=== PATIENT | male | born 1975 | race Caucasian/White ===

== ENCOUNTER 2017-10-19 15:13 | Emergency (ER) | payer OTHER, SELFPAY ==
[2017-10-19 15:14] VITALS: BP 132/91; PULSE 112; RESP 14; TEMP 37.4; O2SAT 94; BMI 47.2
--- NOTE | 2017-10-19 15:29 | EKG12_ITS ---
Test Reason : NUMBNESS Blood Pressure : / mmHG Vent. Rate : 100 BPM Atrial Rate : 100 BPM P-R Int : 146 ms QRS Dur : 108 ms QT Int : 352 ms P-R-T Axes : 034 -23 030 degrees QTc Int : 454 ms Normal sinus rhythm Normal ECG Confirmed by LUIS ENRIQUE DEE MD ([id number]), editor book JOCELYNE KIMBROUGH ([id number]) on 10/21/2017 3:35:17 PM Referred By: YAMILE Confirmed By:LUIS ENRIQUE DEE MD
--- NOTE | 2017-10-19 15:30 | RAD_ITS ---
STUDY: X-RAY CHEST REASON FOR EXAM: Male, 42 years old. Cough and right-sided facial pain. TECHNIQUE: Single AP portable view of the chest. COMPARISON: None. FINDINGS: The lungs are clear and expanded. There is no demonstrated pleural abnormality. There is mild cardiac enlargement. Normal mediastinum and steph. Normal visualized pulmonary arteries. Normal visualized aortic arch and descending thoracic aorta. Normal visualized thoracic spine. Normal visualized ribs, clavicles, and shoulders. There is no demonstrated abnormality of the visualized soft tissue structures of the upper abdomen. RAD/Chest 1 View IMPRESSION: Cardiomegaly. Electronically Signed: Jame Whitley MD at 15:45 EDT Tel [phone], Service support ,
--- NOTE | 2017-10-19 15:30 | VDLE_ITS ---
Reason For Study: SWELLING RIGHT LEFT GSV is normal. GSV is normal. CFV is compressible, spontaneous, phasic, CFV is compressible, spontaneous, phasic, competent and demonstrates normal competent, and demonstrates normal augmentation. augmentation. FV is compressible, spontaneous, phasic, FV is compressible, spontaneous, phasic, competent and demonstrates normal competent and demonstrates normal augmentation. augmentation. POP V is compressible, spontaneous, phasic, POP V is compressible, spontaneous, phasic, competent and demonstrates normal competent and demonstrates normal augmentation. augmentation. T/P Trunk is compressible. T/P Trunk is compressible. PTV is compressible. PTV is compressible. RT PerV is compressible. LT PerV is compressible. Procedure Exam performed portable in ED. The exam was diagnostic. A preliminary report was called and/or faxed to ED. Interpretation Summary Deep veins of the lower extremities are bilaterally patent and compressible segmentally. There is no evidence of deep vein thrombosis on either side. Valvular competence appears intact within the proximal deep venous systems bilaterally. The greater saphenous veins appear bilaterally patent and compressible segmentally. Ordering Physician: Lupe Allison Referring Physician: Colin Ferrell Performed By: Cornelia Ponce, DENITA, RVT
--- NOTE | 2017-10-19 15:31 | ED.VISSUMM ---
- ER Visit Summary Date of Service: 10/19/17 Chief Complaint: [Right-sided facial numbness] History of Present Illness: The patient is a 42 M [who presents the emergency department with numbness to the right side of his face. It started 5 days ago as numbness on the right side of his lips. It is slowly spread across his face to his forehead cheek and chin as well as the right side of his tongue. No difficulty with speaking or swallowing no change in symmetry of the face no dizziness. He has had swelling of his bilateral lower extremities. He states today his fourth and fifth toes are numb. He has chronic shortness of breath but is not changed. No chest pain. No weakness or balance disturbances. He is otherwise healthy he occasionally drinks alcohol he does not smoke takes no medications. He did take aspirin at the advice of his doctor about an hour ago. He has a family history of early congestive heart failure and his father at 37 and his sister has similar illness. He recently drove to [place] and back symptoms started before he left but have progressively worsened while he was gone] Physical Examination: [] Temperature 99.3 heart rate 112 other vitals within normal limits overweight Male in no acute distress PERRL EOMI MMM NECK supple and nontender, no masses RRR no murmur rub or gallop, no peripheral edema, symmetric radial pulses CTAB no respiratory distress ABDOMEN is soft and nontender, normal bowel sounds, no distension, no rebound or guarding SKIN is warm and dry no rashes Alert and Oriented x3, CN II-XII in tact, no motor deficits, decreased sensation on right face and right 4th and 5th toes, gait normal, NIH 1 No lymphadenopathy Test Results: [] Emergency Department Course and Treatment: [I spoke with neurology regarding the patient. They were back recommended MRI. MRI of the brain and neck with and without contrast were obtained and really show no acute process. Patient has strong peripheral pulses. Ultrasound of the lower extremities was negative. Cardiac workup was unremarkable. I am unsure what the cause of the numbness in this patient's face is. I do not think he requires admission at this time however I will refer him to ENT and touch base with his primary doctor. This is been going on for over a week. He did have a mild temperature but no evidence of infection.] Treatment Plan: [] Disposition: [Discharge] Impression: [right facial numbness] This note was generated with [employer] dictation software. It may contain incorrect words, spelling, and punctuation that were not noted in review of the chart prior to signing ED Disposition - Plan for ED Patient: Chief Complaint: Numb/Ting Referrals: Colin Ferrell DO [Primary Care Provider] -
[2017-10-19 15:45] VITALS: BP 149/90; PULSE 103; RESP 18; O2SAT 93
--- NOTE | 2017-10-19 15:48 | MRI_ITS ---
STUDY: MRI CERVICAL SPINE WITH AND WITHOUT CONTRAST REASON FOR EXAM: Male, 42 years old. Facial numbness TECHNIQUE: Standardized fat and water weighted pulse sequences were obtained in the sagittal and axial following I.V. administration of 15 ml of Gadavist contrast material. COMPARISON: None FINDINGS: Normal foramen magnum and brainstem-cervical cord junction. Normal craniovertebral junction. Normal anterior atlantoaxial articulation. Normal odontoid process. Decreased cervical lordosis. Normal vertebral bodies and posterior osseous elements. C2-3: Normal endplates. Normal disc height, signal and morphology. Normal central canal and intervertebral neural foramina. C3-4: Normal endplates. Normal disc height, signal and morphology. Normal central canal and intervertebral neural foramina. C4-5: Normal endplates. Normal disc height, signal and morphology. Normal central canal and intervertebral neural foramina. C5-6: Normal endplates. Normal disc height, signal and tiny left paracentral disc protrusion.. Normal central canal and intervertebral neural foramina. C6-7: Normal endplates. Normal disc height, signal and tiny central disc protrusion. Normal central canal and intervertebral neural foramina. C7-T1: Normal endplates. Normal disc height, signal and morphology. Normal central canal and intervertebral neural foramina. Normal cervical cord. Normal visualized soft tissue structures. MRI/Spine Cervical W/WO Contrast IMPRESSION: Tiny central disc protrusion at C6-7 and tiny left paracentral disc protrusion at C5-6 without significant spinal stenosis or cord compression.. No enhancing lesions following contrast administration Electronically Signed: Jaden Rey MD at 19:47 EDT , Service support ,
--- NOTE | 2017-10-19 15:48 | MRI_ITS ---
STUDY: MRI BRAIN WITH AND WITHOUT CONTRAST REASON FOR EXAM: Male, 42 years old. Right facial numbness TECHNIQUE: Standardized multiplanar fat and water weighted pulse sequences were obtained. 15 ml of Gadavist contrast material was administered intravenously for the contrast portion of the examination. COMPARISON: None. FINDINGS: Normal size of the ventricles and extra-axial spaces for the patient's age. Normal white matter tracts of the supratentorial brain. Normal bilateral basal ganglia. Normal thalami. There is no extra-axial fluid accumulation. Normal flow voids within the major intracranial circulation suggesting patency by spin echo criteria. Normal venous enhancement. There is no enhancing intra-axial or extra-axial abnormality. Normal sella turcica, pituitary gland, infundibular stalk, optic chiasm and hypothalamus. Normal tectal plate and pineal gland. Normal midbrain, suraj and medulla. Normal cerebellum. Normal basal cisterns. Normal bilateral temporal bones. Normal bilateral internal auditory canals. No demonstrated orbital abnormality, within the constraints of a routine brain study. There is minor mucosal thickening of the ethmoid air cells. Normal calvarium and skull base. Normal visualized soft tissue structures. Normal visualized upper cervical spine. MRI/Brain W/WO Contrast IMPRESSION: Normal unenhanced and enhanced MRI of the brain. Mild bilateral ethmoid sinus disease Electronically Signed: Jaden Rey MD at 19:37 EDT , Service support ,
[2017-10-19 16:16] LABS: Absolute Lymphocyte Count 2.19 X10^3/ul (0.83-4.51); Basophil# 0.03 X10^3/uL; Basophil% 0.3 % (0-1); Eosinophil# 0.09 X10^3/uL; Hematocrit 45.8 % (40-54); Hemoglobin 15.2 g/dl (13.0-16.5); Lymphocyte # 2.19 X10^3/ul (4.0); Lymphocyte % 24.4 % (19-41); Mean Corp Hgb Conc 33.2 g/gl (32-36); Mean Corpuscular Volume 90.3 fL (80-94); Mean Platelet Vol. 9.9 fl (6.2-12.0); Monocyte# 0.69 X10^3/uL; Monocyte% 7.7 % (0-10); Neutrophil # 5.97 X10^3/uL (2.7-7.7); Neutrophil % 66.4 % (47-70); Platelet Count 267 K/mm3 (150-450); RBC Distribution Width CV 13.6 % (11.6-14.6); RBC Distribution Width SD 44.2 fl (35.1-43.9); Red Blood Count 5.07 M/mm3 (4.6-6.2)
[2017-10-19 16:18] LABS: POSITIVE COUNT NO; POSITIVE DIFFERENTIAL NO; POSITIVE MORPHOLOGY NO
[2017-10-19 16:19] VITALS: BP 132/85; PULSE 102; RESP 17; O2SAT 92
[2017-10-19 16:30] LABS: Anion Gap 7 (5-15); BUN 13 mg/dL (7-18); BUN/Creat Ratio 13.3 RATIO (10-20); Calcium,Total 9.2 mg/dL (8.5-10.1); Chloride 106 mmol/L (98-107); Creatinine, Serum 0.98 mg/dL (0.70-1.30); EST Glomerular Filtration Rate 90 mL/min (>60); Est Glom Filt Rate - Afr Amer 108 mL/min (>60); Estimated Creatinine Clearance 118.56 ml/min; Glucose 93 mg/dL (74-106); Potassium 3.5 mmol/L (3.5-5.1); Sodium Level 139 mmol/L (136-145)
[2017-10-19 16:41] LABS: Partial Thromboplast Time 31.3 Seconds (24.1-36.2); Prothrombin Time (Protime)PT. 13.6 SECONDS (11.7-14.9)
[2017-10-19 19:00] VITALS: BP 143/96; PULSE 88; RESP 16; O2SAT 97
--- NOTE | 2017-10-19 20:30 | ED.DEP ---
ED Disposition - Plan for ED Patient: Chief Complaint: Numb/Ting Referrals: Colin Ferrell DO [Primary Care Provider] - 2 Days Ta Palm MD [STAFF PHYSICIAN] - 3-5 Days
--- NOTE | 2017-10-19 20:31 | ED.DEP ---
ED Disposition - Plan for ED Patient: Chief Complaint: Numb/Ting Instructions: ED Neuropathy Peripheral Referrals: Ta Palm MD [STAFF PHYSICIAN] - 3-5 Days Colin Ferrell DO [Primary Care Provider] - 2 Days
[2017-10-19 20:53] VITALS: BP 144/82; PULSE 87; RESP 16; O2SAT 97
== END 2017-10-19 20:55 | disposition home or self-care (01) ==
LOC: ED 15:46
PROVIDERS: Emergency Provider Emergency Medicine; Family Provider Family Medicine; PCP Family Medicine
DX: R20.0 Anesthesia of skin (principal); R06.02 Shortness of breath
CPT/HCPCS: 70553; 71045; 72156; 80048; 83880; 84484; 85025; 85610; 85730; 93005; 93970; 99284; A9585; A4216

== ENCOUNTER → 2018-01-05 10:35 | Outpatient (CLI) | payer OTHER, SELFPAY | PROVIDERS: Family Provider Family Medicine; PCP Family Medicine; Visit Provider Chiropractor | DX: M54.16 Radiculopathy, lumbar region (principal) | CPT/HCPCS: 72110 ==

== ENCOUNTER → 2018-03-02 06:51 | Outpatient (CLI) | payer OTHER, SELFPAY ==
--- NOTE | 2018-03-02 06:57 | MRI_ITS ---
STUDY: MRI LUMBAR SPINE WITHOUT CONTRAST REASON FOR EXAM: Male, 42 years old. back pain, left leg pain. TECHNIQUE: Standardized fat and water weighted pulse sequences were obtained in the sagittal and axial planes. # of Images: 139 COMPARISON: None FINDINGS: T12-L1: There is mild disc space narrowing and endplate spondylosis. There is no significant disc herniation, central canal or foraminal stenosis. Normal lumbar lordosis. There is no substantial scoliosis. Normal conus medullaris that terminates at the L1 L1-2: There is minimal disc space narrowing and endplate spondylosis. There is no significant disc herniation, central canal or foraminal stenosis. L2-3: There is minimal disc space narrowing and endplate spondylosis. There is no significant disc herniation, central canal or foraminal stenosis. L3-4: Normal endplates. Normal disc height, hydration and morphology. Normal bilateral facet joints. Normal central canal and bilateral lateral recesses. Normal bilateral intervertebral neural foramina. L4-5: There is mild disc space narrowing and endplates spondylosis. There is mild disc disc osteophyte complex with small central protrusion without significant central canal stenosis. There is minimal bilateral foraminal stenosis. L5-S1: There is minimal disc space narrowing and endplate spondylosis. There is a mild disc bulge with posterior annular fissure without significant central canal or foraminal stenosis. Normal visualized sacral ala. Normal visualized paraspinous soft tissue structures. MRI/Spine Lumbar (Routine) IMPRESSION: Mild degenerative changes. Electronically Signed: Skylar Smith MD at 8:09 EDT Tel , Service support ,
== END ==
PROVIDERS: Family Provider Family Medicine; PCP Family Medicine; Referring Provider Chiropractor; Visit Provider Chiropractor
DX: M51.36 Other intervertebral disc degeneration, lumbar region (principal); M51.26 Other intervertebral disc displacement, lumbar region
CPT/HCPCS: 72148

== ENCOUNTER 2018-07-24 23:12 | Emergency (ER) | payer OTHER, SELFPAY ==
[2018-07-24 23:12] VITALS: BP 111/68; PULSE 109; RESP 16; TEMP 36.2; O2SAT 92; BMI 45.8
--- NOTE | 2018-07-24 23:47 | RAD_ITS ---
HISTORY: IInjury COMPARISON: X-ray report but not images 01/14/2010 which describes an acute right fifth metacarpal fracture. FINDINGS: XR right hand 3 views Old, healed fracture of the right fifth metacarpal transfixed with a metallic plate and 4 fully threaded surgical screws. No loosening of the surgical hardware is seen. 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 Residual mild angular deformity of the fifth metacarpal. 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 Chronic appearing mild shortening of the fourth metacarpal. RAD/Hand Min 3 Views IMPRESSION: 1. No recent fracture or acute osseous abnormality. 2. Right fifth metacarpal healed fracture and additional chronic changes, as above. at 0053 Reported and signed by: Adrián Caraballo MD Electronically Signed: Adrián Caraballo, at 0:52 EDT Tel , Service support ,
--- NOTE | 2018-07-25 01:20 | ED.VISSUMM ---
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 Patient lacerated his right arm. Patient is dominant. Patient is up-to-date on tetanus. He denies any other injuries.] Physical Examination: [Right arm-patient has laceration measuring 1.5 cm over the dorsal aspect of the mid forearm as well as a 2.5 cm laceration over the dorsal aspect of the right hand over the area of the distal third metacarpal. He has normal range of motion of all digits. He has normal sensation. Patient has normal strength. No foreign bodies noted within the wounds.] Test Results: [X-rays of the right hand obtained showed no fractures or foreign bodies.] Emergency Department Course and Treatment: [Laceration repair-wound sterilely draped and prepped. Wound anesthetized with 1% lidocaine total of 6 cc. The forearm laceration measured 1.6 cm and was irrigated with saline and cleansed with Shur-Clens. Using 5-0 nylon a total of 2 single interrupted sutures placed with good wound edge approximation. The laceration of the right hand measured 2.5 cm and again was cleansed with Shur-Clens and irrigated with copious saline. Using 5-0 nylon a total of 3 single interrupted sutures placed with good wound edge approximation. Patient tolerated procedure well.] Both wounds were inspected visually and no foreign bodies noted within the wounds. Treatment Plan: [Patient have sutures removed in 10 days. Patient to return if increasing pain, redness, purulent drainage, or condition should worsen anyway.] Disposition: [Discharged home in stable condition] Impression: [Laceration right forearm and right hand total length 4 cm-simple repair] This note was generated with [employer] dictation software. It may contain incorrect words, spelling, and punctuation that were not noted in review of the chart prior to signing ED Disposition - Plan for ED Patient: Referrals: Colin Ferrell DO [Primary Care Provider] -
--- NOTE | 2018-07-25 01:23 | ED.DEP ---
ED Disposition - Plan for ED Patient: Instructions: ED Laceration Hand Referrals: Colin Ferrell DO [Primary Care Provider] - 10 Day for suture removal
[2018-07-25 01:41] VITALS: RESP 16
== END 2018-07-25 01:41 | disposition home or self-care (01) ==
LOC: ED 07-25 00:34
PROVIDERS: Emergency Provider Emergency Medicine; Family Provider Family Medicine; PCP Family Medicine
DX: S51.811A Laceration without foreign body of right forearm, initial encounter (principal); S61.411A Laceration without foreign body of right hand, initial encounter; W18.02XA Striking against glass with subsequent fall, initial encounter; Y93.9 Activity, unspecified; Y92.838 Other recreation area as the place of occurrence of the external cause; Y99.9 Unspecified external cause status
CPT/HCPCS: 12002; 73130; 99283

== ENCOUNTER 2018-12-16 16:26 | Emergency (ER) | payer OTHER, SELFPAY ==
[2018-12-16 16:27] VITALS: BP 132/86; PULSE 76; PULSE 82; RESP 17; RESP 24; TEMP 36.5; O2SAT 95; BMI 46.0
--- NOTE | 2018-12-16 16:46 | RAD_ITS ---
STUDY: X-RAY CHEST REASON FOR EXAM: Male, 43 years old. Chest pain TECHNIQUE: PA and lateral views of the chest COMPARISON: X-Ray Chest October 19, 2017 FINDINGS: The lungs are clear. There are no pleural effusions. There is no pneumothorax. The heart is normal in size. The visualized osseous structures are within normal limits. RAD/Chest PA and Lateral IMPRESSION: No acute thoracic pathology. Electronically Signed: Jaden Paris, at 17:58 EDT Tel , Service support ,
--- NOTE | 2018-12-16 16:46 | EKG12_ITS ---
Test Reason : Blood Pressure : / mmHG Vent. Rate : 076 BPM Atrial Rate : 076 BPM P-R Int : 158 ms QRS Dur : 110 ms QT Int : 406 ms P-R-T Axes : 030 -21 029 degrees QTc Int : 456 ms Normal sinus rhythm Normal ECG Confirmed by ARNALDO JETT, ANGIE ([id number]), writer editor YOUNG BURRELL ([id number]) on 12/20/2018 1:20:44 PM Referred By: KEVIN/ODETTE Confirmed By:ARIAN MCINTOSH MD
[2018-12-16] MEDS: Aspirin 81 MG TAB.CHEW 324 MG PO (16:54)
[2018-12-16 16:56] VITALS: O2SAT 92
[2018-12-16 16:57] LABS: Absolute Lymphocyte Count 3.03 X10^3/uL (0.83-4.51); Absolute Neutrophil Count 4.3 X10^3/uL (2.0-7.7); Basophil# 0.06 X10^3/uL; Basophil% 0.7 % (0-1); Eosinophil# 0.26 X10^3/uL; Eosinophils% 2.9 % (0-5); Hemoglobin 16.3 g/dL (13.0-16.5); Lymphocyte # 3.03 X10^3/ul (4.0); Lymphocyte % 33.9 % (19-41); Mean Corp Hgb Conc 32.6 g/dL (32-36); Mean Corpuscular Hgb 29.7 pg (27.0-32.0); Mean Corpuscular Volume 91.1 fL (80-94); Mean Platelet Vol. 9.5 fl (6.2-12.0); Monocyte# 1.27 X10^3/uL; Monocyte% 14.2 % (0-10); NRBC Flagged by Analyzer 0 % (0-5); Neutrophil # 4.27 X10^3/uL (2.7-7.7); Neutrophil % 47.9 % (47-70); Platelet Count 296 K/mm3 (150-450); RBC Distribution Width CV 12.9 % (11.6-14.6); RBC Distribution Width SD 43.1 fl (35.1-43.9); Red Blood Count 5.49 M/mm3 (4.6-6.2); White Blood Count 8.9 K/mm3 (4.4-11.0)
[2018-12-16 17:14] VITALS: O2SAT 86; O2SAT 93
[2018-12-16 17:20] LABS: Anion Gap 8 (5-15); BUN 15 mg/dL (7-18); BUN/Creat Ratio 14.9 RATIO (10-20); Calcium,Total 8.9 mg/dL (8.5-10.1); Chloride 106 mmol/L (98-107); Creatinine, Serum 1.01 mg/dL (0.70-1.30); EST Glomerular Filtration Rate 86 mL/min (>60); Est Glom Filt Rate - Afr Amer 104 mL/min (>60); Estimated Creatinine Clearance 113.88 ml/min; Glucose 80 mg/dL (74-106); Potassium 3.3 mmol/L (3.5-5.1); Sodium Level 140 mmol/L (136-145); Thyroid Stim Hormone (TSH) 4.01 uIU/mL (0.358-3.74)
--- NOTE | 2018-12-16 18:23 | ED.DCSUM_ITS ---
History of Present Illness Chief Complaint: Chest Other Informant: EMS Narrative: Patient presenting secondary to an episode of diaphoresis and palpitations. Patient reports that he was simply seated talking to his boss and he all of a sudden became sweaty lightheaded and felt as if his heart was racing. This was fleeting and only lasted for a couple of minutes, and currently the patient is asymptomatic. He denies that there was chest pain associated with this. When it was happening there were not any sort of exacerbating relieving factors. Patient reports that he has similar feelings at night when he wakes up due to issues with sleep apnea. Patient denies that he has any history of hypertension hyperlipidemia high cholesterol or smoking. He has had a history of a normal heart cath as well as normal stress test in the past. No DVT or PE risk factors. Review of systems otherwise negative. Past Medical History - Allergies and Home Meds Allergies/Adverse Reactions: Allergies No Known Allergies Allergy (Verified 12/16/18 16:27) Primary Care Physician: Colin Ferrell DO [Primary Care Provider] - Past Medical History: - - Premature family history of cardiac disease, and obstructive sleep apnea Smoking Status: Never smoker Review of Systems All systems negative except as indicated General: Denies: Fever Cardiovascular: Reports: Palpitations Neurological: Reports: - - Lightheadedness Physical Exam Vital Signs/Narrative: Vital Signs Temp Pulse Resp BP Pulse Ox 12/16/18 17:14 93 12/16/18 16:56 92 12/16/18 16:27 97.7 F L 82 17 132/86 H 95 Inital Vital Signs reviewed: Yes General: Well nourished, Well developed, Obese, No Acute Distress Head: Normocephalic, Atraumatic Eyes: Perrl, EOMI ENT: Moist mucous membranes, No rhinorrhea Neck: Supple, Nontender Cardiovascular: Regular rate, Regular rhythm, No murmurs, - - 2+ radial pulses bilaterally symmetric Respiratory: No distress, CTA bilaterally, Chest nontender Abdomen: Soft, Nontender, Nondistended, Normal bowel sounds Back: Nontender, Normal Inspection Extremities: Nontender, No edema Skin: Normal color, No rash Neurological: Alert, Oriented x3, Cranial nerves II-XII grossly intact, Normal Strength, Normal Sensation Psychological: Normal affect, Normal Mood Diagnostic/Tx/Re-eval - EKG Initial EKG Interpretation: - - Sinus rhythm [address] segments normal T waves normal intervals no evidence of acute ischemia or arrhythmia - Medical Decision Making Patient presented for evaluation secondary to an episode of diaphoresis and palpitations. Patient is PERC negative, there is no indication for work-up of pulmonary embolism. Patient's cardiac work-up was found to be negative. Given the relatively concerning association with diaphoresis and lightheadedness without precipitating factor I did keep the patient in the emergency department for a 3-hour rule out. Both troponins were found to be negative. Patient's heart score is 2. I do not feel that there is further indication for work-up. Patient tells me that he is not wearing his CPAP at night, and is not having a significant amount of waking events with apnea. I did recommend that he follow- up for sleep study. Patient was discharged with reassurance. ED Disposition - Plan for ED Patient: Disposition: Home or Assisted Living Diagnosis: Chest pain Instructions: CHEST PAIN, Uncertain Cause Referrals: Colin Ferrell DO [Primary Care Provider] -
[2018-12-16 19:00] VITALS: BP 124/78; PULSE 82; RESP 17; O2SAT 94
[2018-12-16 20:18] VITALS: BP 132/82; PULSE 94; RESP 18; O2SAT 100
== END 2018-12-16 20:22 | disposition home or self-care (01) ==
PROVIDERS: Emergency Provider Emergency Medicine; Family Provider Family Medicine; PCP Family Medicine
DX: R07.9 Chest pain, unspecified (principal); R61 Generalized hyperhidrosis; R00.2 Palpitations; E66.9 Obesity, unspecified; R42 Dizziness and giddiness; Z82.49 Family history of ischemic heart disease and other diseases of the circulatory system
CPT/HCPCS: 71046; 80048; 84443; 84484; 85025; 93005; 99285; A4216

== ENCOUNTER 2020-09-03 13:02 | Emergency (ER) | payer OTHER, SELFPAY ==
[2020-09-03 13:03] VITALS: BP 133/80; PULSE 88; RESP 19; TEMP 36.3; O2SAT 95; BMI 49.6
[2020-09-03 13:07] VITALS: BP 133/80; PULSE 88; RESP 16; O2SAT 95
[2020-09-03 13:25] LABS: Absolute Neutrophil Count 6.7 X10^3/uL (2.0-7.7); Basophil# 0.07 X10^3/uL; Basophil% 0.7 % (0-1); Eosinophil# 0.27 X10^3/uL; Eosinophils% 2.7 % (0-5); Hematocrit 50.1 % (40-54); Lymphocyte % 17.2 % (19-41); Mean Corp Hgb Conc 31.9 g/dL (32-36); Mean Corpuscular Hgb 29.3 pg (27.0-32.0); Mean Corpuscular Volume 91.8 fL (80-94); Mean Platelet Vol. 9.6 fl (6.2-12.0); Monocyte% 11.1 % (0-10); NRBC Flagged by Analyzer 0 % (0-5); Neutrophil # 6.72 X10^3/uL (2.7-7.7); Platelet Count 289 K/mm3 (150-450); RBC Distribution Width CV 12.8 % (11.6-14.6); RBC Distribution Width SD 43.1 fl (35.1-43.9); Red Blood Count 5.46 M/mm3 (4.6-6.2); White Blood Count 9.9 K/mm3 (4.4-11.0)
[2020-09-03 13:38] LABS: Anion Gap 5 (5-15); BUN 9 mg/dL (7-18); BUN/Creat Ratio 9.6 RATIO (10-20); Calcium,Total 9.5 mg/dL (8.5-10.1); Chloride 101 mmol/L (98-107); Creatinine, Serum 0.94 mg/dL (0.70-1.30); EST Glomerular Filtration Rate 93 mL/min (>60); Est Glom Filt Rate - Afr Amer 112 mL/min (>60); Estimated Creatinine Clearance 119.86 ml/min; Glucose 86 mg/dL (74-106); Potassium 4.1 mmol/L (3.5-5.1); Sodium Level 137 mmol/L (136-145)
--- NOTE | 2020-09-03 15:06 | VDLE_ITS ---
Reason For Study: swelling RIGHT LEFT GSV is normal. GSV is normal. CFV is compressible, spontaneous, phasic, CFV is compressible, spontaneous, phasic, competent and demonstrates normal competent, and demonstrates normal augmentation. augmentation. FV is compressible, spontaneous, phasic, FV is compressible, spontaneous, phasic, competent and demonstrates normal competent and demonstrates normal augmentation. augmentation. POP V is compressible, spontaneous, phasic, POP V is compressible, spontaneous, phasic, competent and demonstrates normal competent and demonstrates normal augmentation. augmentation. T/P Trunk is compressible. T/P Trunk is compressible. PTV is compressible. PTV is compressible. RT PerV is compressible. LT PerV is compressible. Procedure This is a venous duplex using B-mode, color flow and spectral Doppler. Exam performed portable in ED. The study was technically difficult. Due to obesity. A preliminary report was called and/or faxed to Dr. Samuels @ 3:35 pm. VL/Venous Duplex US - Kofi Extrem Interpretation Summary No evidence for acute deep venous thrombosis bilateral lower extremities with p atent and compressible bilateral great saphenous veins. The examination was felt to be te chnically difficult secondary to patient body habitus Ordering Physician: Era Samuels Referring Physician: PÉREZ PCP Performed By: Cornelia Ponce, DENITA, RVT
[2020-09-03 15:12] LABS: BNP,B-Type NATRIURETIC PEPTIDE 15.7 pg/mL (0-100)
[2020-09-03 16:08] VITALS: RESP 16
--- NOTE | 2020-09-03 16:22 | EX.ED.DYSGE1 ---
HPI History of Present Illness Chief Complaint: Edema Detail of Chief Complaint: Bilateral ankle and feet swelling Informant: patient Onset/Context/Timing Onset: Days Context: Gradual Onset Current Severity: Moderate Maximum Severity: Moderate Narrative Narrative: Patient presents secondary to swelling, redness, pain to the bilateral ankles. He denies any known injury. He did not note significant improvement with elevation of his feet. He has no known history of gout. No open injury. PFSH PFSH Home Medications doxycycline monohydrate 100 mg PO BID #20 cap 09/03/20 [Rx Last Taken Unknown] Allergy/AdvReac Type Severity Reaction Status Date / Time No Known Allergies Allergy Verified 09/03/20 13:03 Social History Smoking Status: Never smoker ROS ROS ED Constitutional Constitutional ED: Denies chills or fever(s) Eyes Eyes: Denies change in vision ENT ENT ED: Denies sore throat Cardiovascular Cardiovascular: Denies chest pain Respiratory/Chest Respiratory/Chest: Denies cough or dyspnea Gastrointestinal Gastrointestinal: Denies abdominal pain, diarrhea, nausea or vomiting Genitourinary Genitourinary ED: Denies dysuria Musculoskeletal Musculoskeletal: Reports arthralgias; Denies back pain Integumentary Reports rash and other Details: Erythema bilateral ankles and feet Neurologic Neurologic: Denies headache(s) or weakness Psychiatric Psychiatric: Denies anxiety or depression Endocrine Endocrinology: Denies polydipsia or polyuria Allergic/Immunologic Allergic/Immunologic ED: Denies urticaria EXAM Physical Exam Const Vital Signs: 09/03/20 13:03 09/03/20 13:07 09/03/20 14:26 Temperature 97.3 F L Temperature Source Temporal Pulse Rate 88 88 Respiratory Rate 19 H 16 Respiratory Effort Normal Blood Pressure 133/80 H 133/80 H Blood Pressure Mean 97 97 Pulse Ox 95 95 Oxygen Delivery Method Room Air 09/03/20 16:08 Temperature Temperature Source Pulse Rate Respiratory Rate 16 Respiratory Effort Blood Pressure Blood Pressure Mean Pulse Ox Oxygen Delivery Method Positive well nourished and well developed General Appearance ED: well developed HEENT Reports normocephalic and head/scalp atraumatic Eyes PERRL and EOMs intact bilaterally Neck supple Chest Wall inspection of chest normal and palpation of chest normal Resp normal respiratory effort and clear to auscultation bilaterally Cardio regular rate and regular rhythm GI normal to inspection, nondistended, normoactive bowel sounds Palpation: soft Back/Spine no CVA tenderness Extremity Extremity Narrative: 2+ bilateral lower extremity edema. Mild erythema noted to the medial right ankle. No focal joint tenderness. No open wounds appreciated. General Extremety ED: Yes edema General Extremity: edema Neuro oriented x3 and no sensory deficits noted Sensorium / Orientation: alert Motor Exam: strength 5/5 throughout Psych mental status grossly normal Skin no rashes or lesions noted MDM MDM MDM Narrative Medical decision making narrative: Patient had blood work initiated in triage. White count is normal. Chemistry studies normal. BNP normal. Patient is sent for venous ultrasound with no evidence of DVT. Lab Data Attestation: I reviewed the patient's lab results. Labs: Laboratory Results - last 24 hr 09/03/20 09/03/20 09/03/20 13:18 13:18 13:18 WBC 9.9 RBC 5.46 Hgb 16.0 Hct 50.1 MCV 91.8 MCH 29.3 MCHC 31.9 L RDW Std Deviation 43.1 RDW Coeff of Yamile 12.8 Plt Count 289 MPV 9.6 Immature Gran % (Auto) 0.300 Neut % (Auto) 68.0 Lymph % (Auto) 17.2 L Montgomery % (Auto) 11.1 H Eos % (Auto) 2.7 Baso % (Auto) 0.7 Absolute Neuts (auto) 6.7 Absolute Lymphs (auto) 1.70 Nucleated RBC % 0 Sodium 137 Potassium 4.1 Chloride 101 Carbon Dioxide 31.0 Anion Gap 5 BUN 9 Creatinine 0.94 Estim Creat Clear Calc 119.86 Est GFR (MDRD) Af Amer 112 Est GFR (MDRD) Non-Af 93 BUN/Creatinine Ratio 9.6 L Glucose 86 Calcium 9.5 B-Natriuretic Peptide 15.7 Treatment and Re-Evaluation Comments:: Test results discussed with the patient. Because he does have erythema with some overlying warmth along the medial right ankle I will cover him with a course of doxycycline. Vinod wrap will be applied to his legs to help with fluid reabsorption. Discharge Plan Triage Chief Complaint: Edema ED Provider: Era Samuels Dx/Rx/DC Orders Clinical Impression: Cellulitis, Bilateral edema of lower extremity Instructions: ED Cellulitis, ED Peripheral Edema, Bilateral Prescriptions: New doxycycline monohydrate 100 MG capsule 100 mg PO BID Qty: 20 RF: 0 Primary Care Provider: Care Physician,No Primary Referrals: Rosetta,Dalton, DO [STAFF PHYSICIAN] - 1 Week if not improving Care Physician,No Primary [Primary Care Provider] - Disposition Disposition: Home, self care
[2020-09-03 16:46] VITALS: RESP 16
== END 2020-09-03 16:53 | disposition home or self-care (01) ==
PROVIDERS: Emergency Provider Emergency Medicine
DX: R60.0 Localized edema (principal); L03.90 Cellulitis, unspecified
CPT/HCPCS: 80048; 83880; 85025; 93970; 99283; A4216

== ENCOUNTER 2022-11-06 20:38 | Emergency (ER) | payer SELFPAY ==
[2022-11-06 20:39] VITALS: BP 153/90; PULSE 99; RESP 18; TEMP 36.8; O2SAT 98
--- NOTE | 2022-11-06 20:55 | RAD_ITS ---
STUDY: X-RAY - RIGHT HAND REASON FOR EXAM: Male, 47 years old. INJURY TECHNIQUE: 3 view(s) of the hand. COMPARISON: 07/24/2018 FINDINGS: Normal radiocarpal articulation. Normal distal radioulnar joint. Normal visualized carpal bones. Normal carpal articulations Normal carpometacarpal articulation of the thumb. Normal second through fifth carpometacarpal joints. Healed fracture of the fifth metacarpal bone with dorsal plate and screws. Normal metacarpophalangeal joint of the thumb. Normal interphalangeal joint of the thumb. Normal proximal and distal phalanges of the thumb. Normal metacarpophalangeal joints of the second through fifth fingers. Normal proximal and distal interphalangeal joints of the second through fifth fingers. Acute nondisplaced oblique fracture base of fifth proximal phalanx. The soft tissue structures are unremarkable. RAD/Hand Min 3 Views IMPRESSION: Acute nondisplaced oblique fracture of the base of the fifth proximal phalanx. Electronically Signed: Stephon Riley MD at 21:22 EDT ,
[2022-11-06 21:05] VITALS: BMI 49.8
--- NOTE | 2022-11-06 21:40 | EX.ED.UPPERE ---
HPI History of Present Illness Chief Complaint: Upper Extremity Injury Narrative Narrative: 47-year-old male, [id number], has had multiple reconstructive surgeries on his right hand presents with pain in his right hand and fifth digit from an injury that he sustained a few hours ago. He states that he was walking downstairs, and got his right fifth finger caught in a metal grate as he was walking by, and continue to walk, pulling his right fifth digit. He now has pain at the base of his fourth and fifth digits with noted swelling and ecchymosis. He states that he has been seen at the [facility] for hand surgery, along with Dr. Castle. He denies other injuries. He presents because of the pain mainly at the base of his fourth and fifth digits. [facility] Medical History Mitral valve prolapse Home Medications doxycycline monohydrate 100 mg capsule 100 mg PO BID #20 caps 09/03/20 [Rx Last Taken Unknown] Allergy/AdvReac Type Severity Reaction Status Date / Time No Known Allergies Allergy Verified 11/06/22 20:41 Surgical History Hx of hand surgery Social History Smoking Status: Never smoker ROS ROS ED ROS Narrative Constitutional: No fever, no chills. HEENT: No sore throat. No neck pain. No loss of vision. No rhinorrhea. Cardiovascular: No chest pain. No palpitations. No pedal edema. Respiratory: No cough, no shortness of breath. Abdominal: No abdominal pain. No nausea. No vomiting. Genitourinary: No dysuria. No hematuria. Musculoskeletal: No myalgias. Right fifth digit pain and swelling with ecchymosis. Neurologic: No headaches. No dizziness. No lightheadedness. Skin: No rash. No change in color. Psychiatric: No depression. No anxiety. EXAM Physical Exam Narrative Exam Narrative: Afebrile. Vital signs noted. HEENT: Normocephalic. Atraumatic. PERRL, EOMI. Neck soft and supple. No point tenderness or step off. Cardiovascular: Regular rate and rhythm. No murmurs, rubs, or gallops appreciated. Respiratory: No tachypnea. Lungs clear to auscultation bilaterally. Gastrointestinal: Abdomen soft, nontender, with normoactive bowel sounds. No rebound or guarding. Neurological: Awake. Alert. Nonfocal, nonlateralizing. Skin: No rash. Normal color. No pallor. Musculoskeletal: No pedal edema. Full range of motion extremities. Baseline limited range of motion of right hand secondary to multiple surgeries. Positive ecchymosis and swelling at base of fifth digit. Good capillary refill fourth and fifth digits. Palpable radial pulse. Uninjured at the right wrist and above. Const Vital Signs: 11/06/22 20:39 Temperature 98.3 F Temperature Source Temporal Pulse Rate 99 Respiratory Rate 18 Blood Pressure 153/90 H Blood Pressure Mean 111 Pulse Ox 98 Oxygen Delivery Method Room Air MDM MDM MDM Narrative Medical decision making narrative: Nursing protocol ordered x-rays of the right hand in 3 views. Main concern is for fracture of the hand or even periprosthetic/hardware fracture. I personally interpreted his x-rays and see a nondisplaced fracture at the base of the fifth digit on his right hand at the proximal portion of the proximal phalanx. I reviewed the radiology report which confirms my diagnosis of acute nondisplaced oblique fracture of the base of the fifth proximal phalanx. At this point in time, he declined any stronger narcotic pain medication stating he will take [id number] medications. Additionally he was just going to kamlesh tape his fingers. He will be placed in aluminum foam splint and his fingers kamlesh taped. I do not feel that he requires an ulnar gutter splint/short arm splint. He will follow-up with his orthopedic surgeon, Dr. Castle and/or his hand surgeon at the [facility]. I feel he be discharged safely home with follow-up. I do not feel that he requires observation or admission. Return instructions to the emergency department were reviewed. Disposition is discharged home in stable condition. Radiography Diagnostic Testing: Clinical Impression(s) from Imaging Studies Hand X-Ray 11/06/22 20:55 IMPRESSION: Acute nondisplaced oblique fracture of the base of the fifth proximal phalanx. Electronically Signed: Stephon Riley MD at 21:22 EDT , Discharge Plan Triage Chief Complaint: Upper Extremity Injury ED Provider: Javier Bradford Dx/Rx/DC Orders Clinical Impression: Finger swelling, Fracture of proximal phalanx of digit of right hand Instructions: ED Fracture, Finger, Closed Prescriptions: No Action doxycycline monohydrate 100 MG capsule 100 mg PO BID Qty: 20 0RF Primary Care Provider: Care Physician,No Primary Referrals: Galindo Castle DO [Med Staff - Active Staff] - 5-7 Days Care Physician,No Primary [Primary Care Provider] - Disposition Disposition: Home, Self Care
== END 2022-11-06 21:52 | disposition home or self-care (01) ==
PROVIDERS: Emergency Provider Emergency Medicine; Visit Provider Emergency Medicine
DX: M79.89 Other specified soft tissue disorders (principal); S62.646A Nondisplaced fracture of proximal phalanx of right little finger, initial encounter for closed fracture; W23.2XXA Caught, crushed, jammed or pinched between a moving and stationary object, initial encounter
CPT/HCPCS: 73130; 99282